=== PATIENT | female | born 1985 | race Caucasian/White ===

== ENCOUNTER 2021-11-17 09:37 | Day surgery (SDC) | payer MEDICAID, SELFPAY ==
[2021-11-17] VITALS (12 sets, daily range): BP systolic 92–126; BP diastolic 53–85; PULSE 60–87; RESP 15–77; TEMP 36.4–36.7; O2SAT 97–100; BMI 32.0
--- NOTE | 2021-11-17 10:19 | DI.US_ITS ---
Exam(s) US ABDOMEN LIMITED EXAM: US ABDOMEN LIMITED INDICATION: Epigastric right upper quadrant pain COMPARISON: No exams were available for comparison TECHNIQUE: Ultrasound abdomen performed using standard protocol FINDINGS: Abdominal ultrasound was performed according to the usual protocol. The liver is normal in size and shape. No focal hepatic lesion seen. Note is made of cholelithiasis. Gallbladder wall is not thickened and there is no pericholecystic fl uid. There is positive sonographic Trevizo sign period There is no biliary dilatation. Common hepatic duct measures about 4 millimeters in diameter period. Portal venous flow is hepatopetal. Pancreas appears intact as visualized. Spleen is unremarkable in appearance with no focal lesion. Kidneys are normal in size and shape. No renal mass, hydronephrosis, or nephrolithiasis. Abdominal aorta and IVC are of normal diameter. IMPRESSION: Cholelithiasis with the positive sonographic Trevizo sign. No other evidence of cholecystitis..
[2021-11-17] MEDS: Normal Saline 1,000 ML 1000 ML IV (10:34)
[2021-11-17] MEDS: Pantoprazole 40 MG VIAL IVP (10:37)
[2021-11-17] MEDS: FAMOTIDINE 20 MG in Normal Saline 100 ML 400 MG IVPB (10:38)
--- NOTE | 2021-11-17 10:43 | ED.GENADUL_ITS ---
Discharge Plan Disposition Patient Disposition: [facility] Condition: Good Discharge Details Clinical Impression: Acute cholangitis Primary Care Provider: None,None ED Provider: Lisandro Weinstein Discharge Data Discharge Date/Time-TO BE ENTERED AT DEPARTURE: 11/17/21 13:36 Medical Decision Making Patient presenting to the emergency department for chief complaint of abdominal pain. Patient has been seen twice at another hospital emergency department but is having worsening pain and discomfort. She states that she had a vaginal ultrasound and a CT scan that were nondiagnostic. Patient reports that symptoms are worse with eating and lying flat. She does state some nausea and vomiting. Also does report that for several days she did have some diarrhea but due to poor appetite has not been eating much and diarrhea has since resolved. Denies fever chills respiratory or cardiac symptoms. Physical exam positive for Trevizo sign and right upper quadrant tenderness along with epigastric tenderness. We will plan on checking routine labs including lipase and ultrasound imaging of right upper quadrant given recent CT scan with no findings and no change minimally worsening of symptoms. Pending results we will give GI cocktail, famotidine, and Pepcid. Pertinent past medical history that patient had hysterectomy and right-sided oophorectomy due to PCOS. Review of labs show an unremarkable CBC, CMP with low BUN and low AST but otherwise unremarkable LFTs including normal bilirubin and lipase. Urinalysis is unremarkable. Patient reassessed and continues to have pain so we will give small dose of hydromorphone. Speaking to radiology nurse ultrasound reveals gallstones without signs of blockage and otherwise unremarkable findings. Given patient's worsening pain and discomfort, and progression of symptoms rapidly over the past 4 days we will consult surgery to discuss patient's case and consideration of cholecystectomy. Spoke to general surgery who agreed to have patient admitted for consideration of surgery. Requested COVID-19 test. Pending going to day surgery unit. COVID is negative and patient sent to PACU Lab Data Lab results reviewed: Yes I reviewed the patient's lab results. HPI General Mode of arrival: ambulatory . Date/Time Provider Initiated Documentation: 11/17/21 09:41 . Limitations to Documentation: no limitations . Information obtained by: patient, RN notes reviewed and old records reviewed . History of Present Illness 35 year old F presents to the emergency department with the chief complaint of Abd pain , described as severe, with intensity rated at 8. Quality is described as aching and sharp, and is localized to the abdomen. Patient started experiencing this week(s) (1) and it has been intermittent. No relieving factors improve symptom(s), Eating worsens symptoms and Other factors that worsen symptoms (laying flat) . Patient notes loss of appetite and nausea/vomiting; denies chest pain and cough. Patient did receive the following treatments prior to arrival, other (tums, pepcid and nausea med) Related Data Home Medications Medication Instructions Recorded Confirmed [id number] Plus 11/17/21 albuterol sulfate 90 mcg/actuation 2 puff inhalation PRN 11/17/21 aerosol inhaler (ProAir HFA) fluticasone propionate 45 2 puff inhalation PRN 11/17/21 mcg-salmeterol 21 mcg/actuation HFA inhaler hydrocodone 5 mg-acetaminophen 325 1 tab PO Q6H PRN #14 tabs 11/17/21 mg tablet valacyclovir 500 mg tablet 500 mg PO DAILY 11/17/21 11/17/21 Previous Rx's Medication Instructions Recorded hydrocodone 5 mg-acetaminophen 325 1 tab PO Q6H PRN #14 tabs 11/17/21 mg tablet Allergies Allergy/AdvReac Type Severity Reaction Status Date / Time vitamin E (d-alpha Allergy Intermediate Hives Unverified 11/17/21 09:58 tocopherol) prochlorperazine Allergy Anaphylaxis Unverified 11/17/21 09:58 General Stated Complaint: Abd Prob MEGHANA: 3 Review of Systems Constitutional Constitutional: Denies chills, Denies fever(s) and Reports poor appetite ENT Ears, Nose, Mouth, and Throat: Denies odynophagia Cardiovascular Cardiovascular: Denies chest pain and Denies dyspnea Respiratory Respiratory: Denies cough and Denies dyspnea Gastrointestinal Gastrointestinal: Reports as per HPI, Reports abdominal pain, Denies melena, Reports bloating, Denies hematochezia, Denies change in bowel habits, Denies constipation, Reports diarrhea (Initially but now resolved), Reports nausea, Denies odynophagia, Reports vomiting and Denies hematemesis Genitourinary Genitourinary: Denies hematuria, Denies urinary incontinence, Denies urinary hesitancy, Denies urinary urgency and Denies vaginal discharge Integumentary/Breasts Skin/Breast: Denies rash PFSH All Active Problems (Updated 11/17/21 @ 13:44 by Hansa Lynn MD) Biliary colic (Acute) Acute cholangitis (Acute) Medical History (Updated 11/17/21 @ 13:44 by Hansa Lynn MD) Endometriosis PCOS (polycystic ovarian syndrome) Surgical History (Updated 11/17/21 @ 13:39 by Hansa Lynn MD) H/O unilateral oophorectomy H/O: hysterectomy Social History Smoking/Tobacco Use Status: Former Tobacco Use Smoking risk assessment performed?: Yes Substance use type: does not use Exam Const General: cooperative Orientation: alert, awake and oriented x3 Resp Effort & Inspection: normal respiratory effort and able to speak in complete sentences Auscultation: clear to auscultation bilaterally Cardio Rate: regular rate Rhythm: regular rhythm Heart Sounds: S1 normal and S2 normal GI Palpation: soft, no hepatosplenomegaly, not firm, no guarding, no masses, no pulsatile masses, not rigid, no splenomegaly and tender in the epigastrum, in the RUQ and Trevizo's sign positive Auscultation: hypoactive bowel sounds Back/Spine/Pelvis Back: no CVA tenderness Neuro General: patient alert, patient awake, patient oriented x3, gait normal and moves all extremities Course Vital Signs Vital signs: Vital Signs Temperature 36.7 C 11/17/21 09:51 Pulse 60 11/17/21 09:51 Respiratory Rate 16 11/17/21 09:51 Blood Pressure 115/66 11/17/21 09:51 Pulse Oximetry 98 11/17/21 09:51 Temperature 36.7 C 11/17/21 09:51 Temperature Source Temporal Artery Scan 11/17/21 09:51 Pulse 60 11/17/21 09:51 Respiratory Rate 16 11/17/21 09:51 Respiratory Effort 11/17/21 09:51 Blood Pressure 115/66 11/17/21 09:51 Blood Pressure Position Sitting 11/17/21 09:51 Pulse Oximetry 98 11/17/21 09:51 Oxygen Delivery Method Room Air 11/17/21 09:51 Oxygen Flow Rate 0 11/17/21 09:51 Pain Level 8 11/17/21 09:51
[2021-11-17 10:55] LABS: Abs Immature Grans 0.04 10^3/uL (0.0-0.06); Absolute Basophil Count 0.04 10^3/uL (0.0-0.2); Absolute Eosinophil Count 0.69 10^3/uL (0.0-0.7); Absolute Lymphocyte Count 1.58 10^3/uL (1.2-3.4); Absolute Neutrophil Count 4.35 10^3/uL (1.2-6.7); Basophils % 0.6; Eosinophils % 9.6; HCT 39.5 % (36.0-46.0); HGB 13.4 g/dL (11.2-15.7); Immature Grans % 0.6; Lymphocytes % 21.9; MCH 30.5 pg (27.0-33.0); MCHC 33.9 % (32.0-36.0); MCV 90 fL (80-95); MPV 9.6 fL (8.0-11.0); Monocytes % 6.9; Neutrophils % 60.4; Platelet Count 326 10^3/uL (130-400); RDW 11.9 % (11.7-14.6)
[2021-11-17 11:12] LABS: ALT 21 U/L (14-59); AST 11 U/L (15-37); Albumin 3.7 g/dL (3.4-5.0); Alkaline Phosphatase 98 U/L (46-116); Anion Gap 8.1 mmol/L (3-11); BUN 5 mg/dL (7-18); Bilirubin, Total 0.4 mg/dL (0.2-1.0); CO2 26.9 mmol/L (21.0-32.0); CREATININE 0.6 mg/dL (0.55-1.02); Calcium 8.8 mg/dL (8.5-10.1); Chloride 104 mmol/L (98-107); Glucose 97 mg/dL (74-106); Lipase 78 U/L (73-393); Potassium 3.8 mmol/L (3.5-5.1); Sodium 139 mmol/L (136-145); Total Protein 7.2 g/dL (6.4-8.2)
[2021-11-17 11:54] LABS: Bilirubin Negative (Negative); Blood Negative (Negative); Clarity Clear (Clear); Glucose Negative (Negative); Ketones Negative (Negative); Leukocyte Esterase Negative (Negative); Nitrite Negative (Negative); Specific Gravity 1.015 (1.005-1.025); Urobilinogen 0.2 EU/dL (Up TO 0.2); pH 7.5 (5-8)
[2021-11-17] MEDS: HYDROmorphone 2 MG/ML VIAL 0.5 MG IVP (12:01)
[2021-11-17 12:34] LABS: Source Nasopharynx
--- NOTE | 2021-11-17 13:01 | ANES.PREOP_ITS ---
General Info Date of Service Date Performed: 11/17/21 Height: 5 ft 2 in Weight: 79.379 kg Body Mass Index (BMI): 32.0 Surgical Procedure: Operation Date: 11/17/21 14:40 Proposed Procedure Side Surgeon p Cholecystectomy Laparoscopic Hansa Lynn MD Meds Allergies and Home Medications Allergies Allergy/AdvReac Type Severity Reaction Status Date / Time vitamin E (d-alpha Allergy Intermediate Hives Unverified 11/17/21 09:58 tocopherol) prochlorperazine Allergy Anaphylaxis Unverified 11/17/21 09:58 Home Medication Medication Instructions Recorded [id number] Plus 11/17/21 albuterol sulfate 90 mcg/actuation 2 puff inhalation PRN 11/17/21 aerosol inhaler (ProAir HFA) fluticasone propionate 45 2 puff inhalation PRN 11/17/21 mcg-salmeterol 21 mcg/actuation HFA inhaler valacyclovir 500 mg tablet 500 mg PO DAILY 11/17/21 Current Visit Medications: Current Medications Generic Name Dose Route Start Last Admin Trade Name Freq PRN Reason Stop Dose Admin IV Miscellaneous Supplies 1 each 11/17/21 10:30 Iv Access IV DIRECTED SUZE Sodium Chloride 0 ml 11/17/21 10:19 Normal Saline Flush 10 Ml Syr IVP PRN PRN PFSH Tobacco Smoking/Tobacco Use Status: Former Tobacco Use Substance Use Substance use type: does not use Vital Signs and Lab Results Vital Signs Most Recent Vital Signs in EMR: Most Recent Vital Signs Temp Pulse Resp BP Pulse Ox 36.7 C 60 16 115/66 98 11/17/21 09:51 11/17/21 09:51 11/17/21 09:51 11/17/21 09:51 11/17/21 09:51 Lab Results Result Diagrams: 11/17/21 10:47 11/17/21 10:47 Blood Type / Crossmatch: No Data to Display Complete Blood Count: White Blood Count 7.20 10^3/uL (4.4-10.8) 11/17/21 10:47 Red Blood Count 4.40 10^6/uL (3.93-5.22) 11/17/21 10:47 Hemoglobin 13.4 g/dL (11.2-15.7) 11/17/21 10:47 Hematocrit 39.5 % (36.0-46.0) 11/17/21 10:47 Platelet Count 326 10^3/uL (130-400) 11/17/21 10:47 Complete Metabolic Panel: Sodium Level 139 mmol/L (136-145) 11/17/21 10:47 Potassium Level 3.8 mmol/L (3.5-5.1) 11/17/21 10:47 Chloride Level 104 mmol/L (98-107) 11/17/21 10:47 Carbon Dioxide Level 26.9 mmol/L (21.0-32.0) 11/17/21 10:47 Blood Urea Nitrogen 5 mg/dL (7-18) L 11/17/21 10:47 Creatinine 0.6 mg/dL (0.55-1.02) 11/17/21 10:47 Estimated GFR/1.73 m2 >= 60.00 (mL/min/1.73m2) 11/17/21 10:47 Magnesium Level 2.0 mg/dL (1.8-2.4) 11/17/21 10:47 Calcium Level 8.8 mg/dL (8.5-10.1) 11/17/21 10:47 Albumin 3.7 g/dL (3.4-5.0) 11/17/21 10:47 Glucose Level 97 mg/dL (74-106) 11/17/21 10:47 Liver Function Panel: Alanine Aminotransferase (ALT/SGPT) 21 U/L (14-59) 11/17/21 10: 47 Aspartate Amino Transf (AST/SGOT) 11 U/L (15-37) L 11/17/21 10: 47 Coagulation Panel: No Data to Display Cardiac Panel: No Data to Display Arterial Blood Gas: No Data to Display Venous Blood Gas: No Data to Display Pancreas Panel: Lipase 78 U/L (73-393) 11/17/21 10:47 Thyroid Panel: No Data to Display Infectious Disease: Coronavirus (COVID-19)(PCR) Pending 11/17/21 12:30 Coronavirus 2019 Source Nasopharynx 11/17/21 12:30 Blood Cultures: No Data to Display Toxicology Panel: No Data to Display Panel: No Data to Display Anesthesia Assessment and Plan Anesthesia History Personal History: No History of Anesthesia Complications Family History: No Family History of Anesthesia Complications Exercise Tolerance Exercise Tolerance: Metabolic Equivalents>4 Pertinent Negatives Pertinent Negatives: No Major Cardiovascular Symptoms or Complaints and No Major Pulmonary Symptoms or Complaints Cardiac & Pulmonary Exam Cardiac Exam: Normal S1/S2 Heart Sounds Pulmonary Exam: Clear Bilateral Breath Sounds Implantable Cardiac Device Does patient have a Pacemaker or an ICD?: No Airway Exam Known Difficult Airway: No Mallampati Class: 2 Mouth Opening: Normal (> 3cm) Thyromental Distance: Greater than 3 cm Neck Range of Motion: Full ROM Neck Circumference: Thick Teeth Condition: Normal Dentition ASA Classification ASA Score: ASA 2 Emergency Case?: Yes NPO Status NPO Status: Full Stomach Status Status: History of Hysterectomy Anesthesia Plan Resuscitation Status: Full Code Anesthesia Technique: General Anesthesia Airway Planned: Endotracheal Tube Monitors Used: Standard Monitors
[2021-11-17 13:21] LABS: COVID-19 PCR Negative (Negative)
--- NOTE | 2021-11-17 13:34 | HPE_ITS ---
Assessment and Plan Assessment and plan (1) Biliary colic: Status: Acute Assessment and plan: Mrs Guy is a pleasant 35 year old female with 1 week of RUQ pain, anorexia and N/V. US showed stones. On exam she has a positive Trevizo's sign. With her co ntinued symptoms we discussed laparoscopic Cholecystectomy. Risks, benefits, complications were reviewed with the patient in the office. Complications include but are not limited to bleeding, infection, injury to stomach, small bowel and large bowel, injury to the pancreas, injury to the common bile duct necessitating drainage and referral to tertiary center for repair, bile leak, adverse reactions to the medications, complications of intubation including a sore throat or injury to the uvula, [place], stroke and even . Questions were entertained and answered to her satisfaction and she wi shed to proceed. No guarantees were given or implied. Proceed with Lap. Tony History of Present Illness Consults Consult date: 11/17/21 Narrative: Ms Guy presented to the emergency department for chief complaint of abdominal pain.? Patient has been seen twice at another hospital emergency department but is having worsening pain and discomfort.? She states that she had a vaginal ultrasound and a CT scan that were nondiagnostic.? Patient reports that symptoms are worse with eating and lying flat.? She does state some nausea and vomiting.? Also does report that for several days she did have some diarrhea but due to poor appetite has not been eating much and diarrhea has since resolved.? Denies fever chills respiratory or cardiac symptoms.? Physical exam positive for Trevizo sign and right upper quadrant tenderness along with epigastric tenderness.?? Pertinent past medical history that patient had hysterectomy and right-sided oophorectomy due to PCOS. Review of labs show an unremarkable CBC, CMP with low BUN and low AST but otherwise unremarkable LFTs including normal bilirubin and lipase.? Urinalysis is unremarkable.? Ultrasound reveals gallstones without signs of blockage and otherwise unremarkable findings.? Given patient's worsening pain and discomfort, and progression of symptoms I discussed with patient a Laparoscopic Cholecystectomy. Review of Systems Constitutional Constitutional: Reports fatigue, Denies fever(s), Denies headache(s), Denies weakness and Denies weight loss Eyes Eyes: Denies change in vision ENT Ears, Nose, Mouth, and Throat: Denies headache(s), Denies nasal discharge and Denies odynophagia Cardiovascular Cardiovascular: Denies chest pain, Denies chest pain at rest, Denies irregular heart rhythm, Denies palpitations, Denies dyspnea and Denies dyspnea on exertion Respiratory Respiratory: Denies cough, Denies dyspnea and Denies dyspnea on exertion Gastrointestinal Gastrointestinal: Reports as per HPI, Denies dyspepsia, Denies heartburn and Denies odynophagia Genitourinary Genitourinary: Reports system reviewed and no additional complaints, except as documented Musculoskeletal Musculoskeletal: Reports system reviewed and no additional complaints, except as documented Integumentary/Breasts Skin/Breast: Reports system reviewed and no additional complaints, except as documented Neurologic Neurologic: Denies headache(s) and Denies weakness Psychiatric Psychiatric: Reports system reviewed and no additional complaints, except as documented Endocrine Endocrine: Reports fatigue and Denies palpitations Hematologic/Lymphatic Hematologic/Lymphatic: Reports system reviewed and no additional complaints, except as documented PFSH All Active Problems (Updated 11/17/21 @ 13:44 by Hansa Lynn MD) Biliary colic (Acute) Acute cholangitis (Acute) Medical History (Updated 11/17/21 @ 13:44 by Hansa Lynn MD) Endometriosis PCOS (polycystic ovarian syndrome) Surgical History (Updated 11/17/21 @ 13:39 by Hansa Lynn MD) H/O unilateral oophorectomy H/O: hysterectomy Social History Smoking/Tobacco Use Status: Former Tobacco Use Smoking risk assessment performed?: Yes Substance use type: does not use Meds Allergies and Home Medications Allergies Allergy/AdvReac Type Severity Reaction Status Date / Time vitamin E (d-alpha Allergy Intermediate Hives Unverified 11/17/21 09:58 tocopherol) prochlorperazine Allergy Anaphylaxis Unverified 11/17/21 09:58 Home Medications Medication Instructions Recorded Confirmed Type [id number] Plus 11/17/21 History albuterol sulfate 90 mcg/actuation 2 puff inhalation PRN 11/17/21 History aerosol inhaler (ProAir HFA) fluticasone propionate 45 2 puff inhalation PRN 11/17/21 History mcg-salmeterol 21 mcg/actuation HFA inhaler valacyclovir 500 mg tablet 500 mg PO DAILY 11/17/21 11/17/21 History Exam Const General: comfortable and no acute distress Orientation: alert and oriented x3 HENMT Head: normocephalic and atraumatic Resp Effort & Inspection: normal respiratory effort Auscultation: clear to auscultation bilaterally Cardio Rate: regular rate Rhythm: regular rhythm Heart Sounds: no gallops, no murmurs and no rubs GI Inspection: normal to inspection Palpation: soft, no hepatosplenomegaly, no hernias and tender in the RUQ and Trevizo's sign positive Results Labs Result diagrams: 11/17/21 10:47 11/17/21 10:47 Labs: Laboratory Results - last 24 hr 11/17/21 11/17/21 11/17/21 10:47 10:47 11:45 WBC 7.20 RBC 4.40 Hgb 13.4 Hct 39.5 MCV 90 MCH 30.5 MCHC 33.9 RDW 11.9 Plt Count 326 MPV 9.6 Immature Gran % 0.6 Neutrophils % 60.4 Lymphocytes % 21.9 Monocytes % 6.9 Eosinophils % 9.6 Basophils % 0.6 Nucleated RBC % 0.0 Absolute Neutrophils 4.35 Absolute Lymphocytes 1.58 Absolute Monocytes 0.50 Absolute Eosinophils 0.69 Absolute Basophils 0.04 Sodium 139 Potassium 3.8 Chloride 104 Carbon Dioxide 26.9 Anion Gap 8.1 BUN 5 L Creatinine 0.6 Estimated GFR/1.73 m2 >= 60.00 Glucose 97 Calcium 8.8 Magnesium 2.0 Total Bilirubin 0.4 AST 11 L ALT 21 Alkaline Phosphatase 98 Total Protein 7.2 Albumin 3.7 Lipase 78 Urine Color Yellow Urine Clarity Clear Urine pH 7.5 Ur Specific [place] 1.015 Urine Protein Negative Urine Ketones Negative Urine Blood Negative Urine Nitrite Negative Urine Bilirubin Negative Urine Urobilinogen 0.2 Ur Leukocyte Esterase Negative Urine Glucose Negative COVID-19 Source SARS-CoV-2 (PCR) 11/17/21 12:30 WBC RBC Hgb Hct MCV MCH MCHC RDW Plt Count MPV Immature Gran % Neutrophils % Lymphocytes % Monocytes % Eosinophils % Basophils % Nucleated RBC % Absolute Neutrophils Absolute Lymphocytes Absolute Monocytes Absolute Eosinophils Absolute Basophils Sodium Potassium Chloride Carbon Dioxide Anion Gap BUN Creatinine Estimated GFR/1.73 m2 Glucose Calcium Magnesium Total Bilirubin AST ALT Alkaline Phosphatase Total Protein Albumin Lipase Urine Color Urine Clarity Urine pH Ur Specific [place] Urine Protein Urine Ketones Urine Blood Urine Nitrite Urine Bilirubin Urine Urobilinogen Ur Leukocyte Esterase Urine Glucose COVID-19 Source Nasopharynx SARS-CoV-2 (PCR) Negative Last Vital Signs Temp 98.1 F 11/17/21 09:51 Pulse 60 11/17/21 09:51 Resp 16 11/17/21 09:51 BP 115/66 11/17/21 09:51 Pulse Ox 98 11/17/21 09:51
--- NOTE | 2021-11-17 13:49 | ROE_ITS ---
Date of service: 11/17/21 Time of Service: 15:09 Operative Note Operative Note DATE OF PROCEDURE: 11/17/21 PRE-OP DIAGNOSIS: Biliary Colic POST-OP DIAGNOSIS: same PROCEDURE: Laparoscopic Cholecystectomy SURGEON: Hansa Lynn [address] FREIGHT: Clara Burnham Refer to Anesthesia Record ESTIMATED BLOOD LOSS: 15 PATHOLOGY: other (gallbladder) COMPLICATIONS: None Patient was transported to: PACU Patient's condition: stable Indications: Mrs Guy is a pleasant 35 year old female with 1 week of RUQ pain, anorexia and N/V.? US showed stones. On exam she has a positive Trevizo's sign. With her continued symptoms we discussed laparoscopic Cholecystectomy.? Risks, benefits, complications were reviewed with the patient in the office.? Complications include but are not limited to bleeding, infection, injury to stomach, small bowel and large bowel, injury to the pancreas, injury to the common bile duct necessitating drainage and referral to tertiary center for repair, bile leak, adverse reactions to the medications, complications of intubation including a sore throat or injury to the uvula, [place], stroke and even .? Questions were entertained and answered to her satisfaction and she wished to proceed.? No guarantees were given or implied. Proceed with Lap. Chavo Findings: 2 stones within the Gallbladder. No inflammation or thickening Procedure Description: After informed consent was obtained the patient was brought to the operating room, placed in a supine position and monitors were applied. SCDs were applied to her lower extremities and she was placed under general anesthesia and intubated without difficulty. Her abdomen was then prepped and draped in a sterile fashion using ChloraPrep. At this point a timeout was done and the patient's name, date of , procedure type, allergies to medications, metal in her body, antibiotic and DVT prophylaxis were reviewed. Fire risk was assessed. At this point 0.25% Bupivocaine was injected just above the umbilicus into the dermis and subcutaneous tissue. A 5 mm incision was made with an 11 blade. The skin next to the incision was grasped with penetrating towel clamps and while pulling up on the skin a 5 mm port was placed under direct visualization. The abdomen was insuflated and then 3 more ports were placed. A 12 mm port was placed in the subxiphoid area and two 5 mm ports were placed in the right upper quadrant. The liver was inspected and looked normal. The patient's bed was then turned to the left and her head was brought up. The gallbladder was grasped at the body and pushed towards the right shoulder, this allowed me to visualize the neck of the gallbladder. The neck was grasped and pulled towards the right flank and down allowing me to visualize the lymph node. Using a [place] dissector with cautery the lymph node was gently dissected away from th e tissues and the fatty tissue was also dissected away. The cystic artery was then identified running above the cystic duct and was dissected 360 degrees. It was visualized going into the gallbladder. Once dissected 3 more clips were placed one proximal and 2 distal and the artery was cut. The cystic duct was the identified and it was normal in size. The duct was dissected 360 degrees using the [place] dissector in order for me to visualize its entrance into the gallbladder. Liver was noted behind it. There were no other structures right behind. Critical view was achieved. 3 clips were placed one proximal and 2 distal and the cystic duct was cut. Using the hook dissector the gallbladder was then dissected away from the liver bed and placed into an Endo Catch bag and pulled through the 12 mm port site. The 12 mm port was placed back into the abdomen under direct visualization. The liver bed was inspected no bleeding was noted. The abdomen was then irrigated with a liter of normal saline until the effluent was clear. Once all the fluid was suctioned out, the 12 mm and the 2 right upper quadrant ports were removed under direct visualization and no bleeding was noted from the fascia. The abdomen was deflated completely and lastly the umbilical port was removed. The skin was cleaned and the incisions were closed with 4-0 Vicryl. The skin was dried and skin affix was applied over the closed incisions. Needle, instrument and sponge counts were correct at the end of the case. At this point the patient was woken up, extubated and taken back to recovery in stable condition. There were no immediate complications.
[2021-11-17] MEDS: Lactated Ringers 1,000 ML 80 ML IV (13:51)
--- NOTE | 2021-11-17 14:30 | GB_PTH ---
PATIENT: Tawana Rizo LOC: [facility] U#:[id number] AGE/SX: 35/F ROOM: RE11/17/[address]: Hansa Lynn MD : 1985 BED: DIS: 11/17/2021 SPEC #: [id number] RECD: 11/17/21 17:58 STATUS: ANA ROSA REQ #: [id number] BRANDON: 11/17/21 14:[address]: Hansa Lynn DEPT: Surgical Specimen RECD BY: Ariadna Vegas ENTERED: 11/17/21 17:58 SP TYPE: GB OTHR DR: None Tissues: 1 - GALLBLADDER Procedures: GROSS AND MICRO LEVEL 3 Comments: [id number]
--- NOTE | 2021-11-17 14:59 | PDOC.DSDIS_ITS ---
Discharge Plan Disposition Patient Disposition: HOME Condition: Good Discharge Details Reason For Visit: biliary colic Attending Provider: Hansa Lynn Primary Care Provider: None,None Home Meds and New Rx's Prescriptions: New hydrocodone-acetaminophen 5-325 mg tablet 1 tab PO Q6H PRNQty: 14 0RF Continued valacyclovir 500 mg Tablet 500 mg PO DAILY albuterol sulfate [ProAir HFA] 90 mcg/actuation Hfa Aerosol Inhaler 2 puff INHALATION PRN fluticasone propion-salmeterol 45-21 mcg/actuation Hfa Aerosol Inhaler 2 puff INHALATION PRN [id number] Plus Discharge Instructions Instructions: Laparoscopic Cholecystectomy (DC) Additional Instructions: Activity at Home after surgery: 1. Make sure you walk outside at least 4 times per day 2. You should be able to climb a flight of stairs 3. No driving while in pain or taking pain medications 4. No strenuous activity or heavy lifting (no more then 10 - 25 lb) for 2 weeks (laparoscopic surgery) Diet, Nutrition, & wound healin. Avoid alcohol until after you are recovered from your surgery 2. Make sure to eat plenty of lean protein (meat, fish, eggs, cottage cheese, beans) 3. Eat a variety of fruits and vegetables. Eat plenty of high fiber foods to avoid constipation. 4. Drink plenty of liquids to stay hydrated and avoid constipation Pain Medications: 1. Tylenol 650mg every 6 hours as needed and Ibuprofen 600 mg every 6 hours as needed. You may alternate between the 2 medications every 3 hours 2. If a narcotic has been prescribed take as directed only for breakthrough pain For Constipation: 1. Take Milk of Magnesia or MiraLax as needed for constipation Other: 1. You may shower daily. Do not scrub the incisions 2. Do not soak the incisions for 1 week 3. You may alternate ice and heat as needed for pain and swelling Wound Care: 1. Keep the incisions clean and dry Please call our office if you develop: 1. Fevers >101.5 2. Nausea or Vomiting 3. Worsening pain 4. Redness and thick discharge from the wounds If after hours please call the Hospital at and ask to speak to the on-call surgeon Referrals: Hansa Lynn MD [ [facility] STAFF PHYSICIAN] - 11/30/21 9:30 am Activity:: see above Remove Dressings/Wound Care:: Do Not Remove Shower/Bathe:: 24 hours Diet:: low fat x 2 weeks Discharge Orders Discharge Orders: Discharge Order (Routine); Ordered 11/17/21 Ordered By: Hansa Lynn DS: Diagnosis Discharge Diagnosis (1) Biliary colic: Status: Acute
[2021-11-17] MEDS: HYDROmorphone 2 MG/ML VIAL IVP ×2 (15:11→15:21)
[2021-11-17] MEDS: Normal Saline 10 ML VIAL (15:12)
--- NOTE | 2021-11-17 15:50 | W.ANESPOSTOP ---
Postoperative Evaluation Date, Time and Location Date Performed: 11/17/21 Time Performed: 15:40 Patient Location: PACU Vital Signs Most Recent Imported Vital Signs: Most Recent Vital Signs Temp Pulse Resp BP Pulse Ox 36.6 C 65 15 109/67 100 11/17/21 15:35 11/17/21 15:35 11/17/21 15:35 11/17/21 15:35 11/17/21 15:35 Pain Score Most Recent Pain Score: Most Recent Pain Score Pain Level 7 11/17/21 15:20 Assessment Mental Status: Awake (Alert & Oriented to Patient Baseline) Airway and Respiratory Function: Patent airway with normal (patient baseline) respiratory exam Cardiovascular Function: Hemodynamically Stable Hydration Status: Adequately Hydrated Nausea & Vomiting: No Nausea or Vomiting Pain: Pain is Moderate or Severe Postoperative Pain Management: Pain being addressed with medication Peripheral Nerve Block: Patient did not receive a nerve block
[2021-11-17] MEDS: HYDROcodone 5/Acetaminophen 325 TAB PO (16:37)
== END 2021-11-17 18:41 | disposition home or self-care (01) ==
LOC: ER 12:39 → SUR 13:36
PROVIDERS: Emergency Provider Nurse Practitioner Family; Visit Provider Surgery
PROC: 0FT44ZZ Resection of Gallbladder, Percutaneous Endoscopic Approach (ICD-10-PCS; CPT 47562; principal; 2021-11-17 14:30)
DX: K80.20 Calculus of gallbladder without cholecystitis without obstruction (principal); Z20.822 Contact with and (suspected) exposure to COVID-19; K82.8 Other specified diseases of gallbladder
CPT/HCPCS: 47562; 36415; 80053; 83690; 87635; 96361; 96365; 96375; 99285; 76705; 81003; 83735; 85025; 88304; J0690; J1100; J1885; J2405; J2704